=== PATIENT | male | born 2000 | race Caucasian/White ===

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

== ENCOUNTER 2022-09-24 15:02 | Emergency (ER) | payer MEDICAID, SELFPAY ==
[2022-09-24 15:20] VITALS: BP 132/92; PULSE 78; RESP 15; TEMP 36.7; O2SAT 99; BMI 20.2
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
[2022-09-24 19:05] LABS: Basophils # 0.1 10^3/uL (0.0-0.1); Basophils % 0.5 %; Eosinophils # 0.2 10^3/uL (0.0-0.8); Eosinophils % 1.7 %; Hematocrit 47.1 % (42.0-52.0); Hemoglobin 15.6 g/dL (11.7-16.6); Lymphocytes # 2.8 10^3/uL (1.5-6.5); Lymphocytes % 25.7 %; Mean Corpuscular HGB Conc 33.1 g/dL (30.0-36.0); Mean Corpuscular Hemoglobin 31.7 pg (28.0-34.0); Mean Corpuscular Volume 95.7 fl (80-94); Mean Platelet Volume 9.2 fL (7.4-10.4); Monocytes # 0.8 10^3/uL (0.2-0.9); Monocytes % 7.6 %; Neutrophils # 6.89 10^3/uL (1.8-8.0); Neutrophils % 64.2 %; Nucleated Red Blood Cells % 0 %; Platelet Count 287 10^3/cmm (130-400); Red Blood Count 4.92 10^6/uL (4.1-5.3); Red Cell Distribution Width 12.2 % (12.1-15.1); White Blood Count 10.7 10^3/uL (4.5-13.0)
[2022-09-24 19:11] LABS: Add Urine Microscopic? NO; Charge for UA Resulting for Rev
[2022-09-24 19:16] LABS: Bilirubin Urine Neg (Negative); Blood Urine Neg (Negative); Glucose Urine UA Norm (Normal); Ketones Urine Negative (Negative); Leukocyte Esterase Urine Negative (Negative); Nitrate Urine Negative (Negative); Protein Urine Neg (Negative); Specific Gravity, Urine 1.015 (1.005-1.030); Urine Appearance Clear (CLEAR); Urine Color Yellow (Yellow); Urobilinogen Urine 4 mg/dL (Negative); pH Urine 7 (5-7)
[2022-09-24 19:24] LABS: Anion Gap 12.7 (5-19); Blood Urea Nitrogen 12 mg/dL (6-20); Calcium 9.7 mg/dL (8.5-10.5); Carbon Dioxide 28 mmol/L (22-29); Chloride 103 mmol/L (98-107); Glomerular Filtration Rate 95.3 mL/min (90-130); Glucose 87 mg/dL (65-115); Osmolality Calculated 289 mOsm/kg (285-295); Potassium 3.7 mmol/L (3.5-5.1); Sodium 140 mmol/L (136-145)
[2022-09-24 20:00] VITALS: BP 135/85; PULSE 81; RESP 18; O2SAT 97
--- NOTE | 2022-09-24 20:00 | CTR_ITS ---
PROCEDURE INFORMATION: Exam: CT Abdomen And Pelvis Without Contrast Exam date and time: 09/24/2022 9:13 PM Age: 22 years old Clinical indication: Pain; Other: Left flank; Additional info: Left renal colic TECHNIQUE: Imaging protocol: Computed tomography of the abdomen and pelvis without contrast. Radiation optimization: All CT scans at this facility use at least one of these dose optimization techniques: automated exposure control; mA and/or kV adjustment per patient size (includes targeted exams where dose is matched to clinical indication); or iterative reconstruction. COMPARISON: CR XR chest 1V portable [id number] 11/17/2021 5:41 AM RADIATION DOSE METRICS: Total DLP (mGy-cm): 356.03 FINDINGS: Liver: Normal. No mass. Gallbladder and bile ducts: Normal. No calcified stones. No ductal dilation. Pancreas: Normal. No ductal dilation. Spleen: Normal. No splenomegaly. Adrenal glands: Normal. No mass. Kidneys and ureters: Normal. No hydronephrosis. Negative for urolithiasis. Stomach and bowel: Unremarkable. No obstruction. No mucosal thickening. Appendix: No evidence of appendicitis. Intraperitoneal space: Unremarkable. No free air. No significant fluid collection. Vasculature: Unremarkable. No abdominal aortic aneurysm. Lymph nodes: Unremarkable. No enlarged lymph nodes. Urinary bladder: Unremarkable as visualized. Reproductive: Unremarkable as visualized. Bones/joints: Unremarkable. No acute fracture. Soft tissues: Unremarkable. CT/CT abdomen pelvis con [id number] IMPRESSION: No acute findings.
[2022-09-24] MEDS: ketorolac 30 mg/mL INJ 15 MG IVP (21:00)
[2022-09-24 22:52] VITALS: BP 131/72; PULSE 74; RESP 18; O2SAT 98
== END 2022-09-24 22:45 | disposition home or self-care (01) ==
PROVIDERS: Nurse Practitioner Family; Emergency Provider Emergency Medicine; PCP Nurse Practitioner
DX: M54.50 Low back pain, unspecified (principal); F17.210 Nicotine dependence, cigarettes, uncomplicated
CPT/HCPCS: 74176; 80048; 81000; 81003; 85025; 87086; 96374; 99284; J1885

== ENCOUNTER → 2023-05-29 11:07 | Outpatient (BNVA) | payer SELFPAY | PROVIDERS: PCP Nurse Practitioner; Visit Provider Nurse Practitioner Family | DX: R10.10 Upper abdominal pain, unspecified (principal); R11.2 Nausea with vomiting, unspecified | CPT/HCPCS: 80053; 85025 ==

== ENCOUNTER 2025-07-02 19:30 | Emergency (ER) | payer BC, SELFPAY ==
[2025-07-02 19:36] VITALS: BP 155/78; PULSE 72; RESP 16; TEMP 36.9; O2SAT 99; BMI 20.9
--- NOTE | 2025-07-02 19:42 | XRR_ITS ---
PROCEDURE INFORMATION: Exam: XR Left Forearm Exam date and time: 07/02/2025 7:51 PM Age: 24 years old Clinical indication: Pain; Lower or forearm; Left; Additional info: Pain after pulling logs TECHNIQUE: Imaging protocol: Radiologic exam of the left forearm. 755 image(s) are submitted. Views: 2 views. COMPARISON: No relevant prior studies available. FINDINGS: Bones/joints: Normal. Soft tissues: Normal. XR/XR forearm LT 2V [id number] IMPRESSION: No acute findings.
[2025-07-02 20:41] VITALS: BP 140/78; PULSE 73; O2SAT 98
--- NOTE | 2025-07-02 21:15 | ED_ITS ---
HPI - Extremity Problem General: Chief complaint: Extremity Injury, Upper Stated complaint: LT hand Pain/ Tingling Time Seen by Provider: 07/02/25 19:46 History of Present Illness: Patient is a 24-year-old gentleman that was lifting heavy equipment with a repetitive motion and injured his left hand, and has association of tingling. This is affecting fingers #4 and 5 on his left hand. This is running up his palmar surface, to his elbow with pain. Selected Entries 07/02/25 19:36 ED Triage Comment left arm pain from 4th and 5th digit running down that side of arm to el bow. pt reports knot to palm of l eft hand. painful to make a fist or use. Pain started yesterday while he was a work Lug lo ading which means quickly turning jillian ards over and pull ing them towards h im. Associated symptoms: Deny chest pain, fever(s) or rash Related Data Home Medications ?Medication ?Instructions ?Recorded ?Confirmed ciprofloxacin HCl 500 mg tablet 500 mg PO BID 09/28/24 09/28/24 Allergies Allergy/AdvReac Type Severity Reaction Status Date / Time No Known Allergies Allergy Verified 09/28/24 14:55 Review of Systems General: Reports: 10 or more systems reviewed and unremarkable except in HPI and below Const: Denies: fever(s) or chills Eyes: Denies: change in vision or blurry vision ENMT: Denies: throat pain or mouth pain Card: Denies: chest pain or palpitations Resp: Denies: dyspnea or productive cough GI: Denies: abdominal pain, nausea or vomiting : Denies: flank pain or difficulty urinating Musc: Reports: extremity pain, joint pain, limited range of motion and muscle cramps; Denies: neck pain, back pain or joint redness Skin/Breast: Denies: rash or pruritus Neuro: Denies: headache(s) or numbness in extremities Psych: Denies: anxiety or depression PFS ED PFSH: Medical History (Updated 07/02/25 @ 21:19 by GUY Villela) Wheezing on auscultation Closed right forearm fracture Left wrist fracture Nose fracture Family History Other Chronic kidney disease (CKD) Heart palpitations Social History Smoking and tobacco/nicotine status: current every day tobacco/nicotine user smokeless tobacco Second hand smoke exposure: No Physical Exam Const: COMMON NORMALS: no acute distress, average body habitus and patient bob ented x3 HENMT: COMMON NORMALS: normocephalic and atraumatic HEAD & SCALP: normocephalic and atraumatic Neck/C-Spine: COMMON NORMALS: full ROM, no lymphadenopathy, supple and no meningeal signs Lymph: LYMPHATIC: no lymphadenopathy noted Chest: COMMONS NORMALS: normal inspection of the chest Resp: COMMON NORMALS: normal respiratory effort, No retractions and clear to auscultation bilaterally AUSCULTATION: clear to auscultation bilaterally Cardio: COMMON NORMALS: regular rate and regular rhythm RATE: regular rate RHYTHM: regular rhythm GI: COMMON NORMALS: Normal to inspection, nondistended, normoactive bowel sounds present, Soft to palpation and non-tender PALPATION: Yes Soft to p alpation : COMMON NORMALS: Yes no CVA tenderness BLADDER/KIDNEY EXAM: Yes no CVA tenderness Back/Pelvis: COMMON NORMALS: no CVA tenderness Extremity: RIGHT UPPER EXTREMITY: Yes wrist Right wrist: Yes ROM (decreased with retraction of fingers 4, 5), Yes neurovascular exam (sensation intact) and Yes special tests Right wrist special tests: Maik's test: Positive, Tinel's test: Positive, Phalen's test: Positive and Denny's test: Negative and Yes hand & digits Right hand and digits: Yes inspection, Yes palpation (Small Dupuytren's contraction left palm) and Yes hand special tests Neuro: COMMON NORMALS: patient oriented x3 MENINGEAL SIGNS: Yes no meningeal signs Psych: COMMON NORMALS: mental status grossly normal, Normal thought process present and cooperative THOUGHT PROCESS: Normal thought process present Skin: COMMON NORMALS: no rashes or lesions noted, no wounds and turgor normal GENERAL SKIN EXAM: no rashes or lesions noted and turgor normal Course Vital Signs: Vital signs: Vital Signs Temperature 98.4 F 07/02/25 19:36 Pulse Rate 73 07/02/25 21:34 Respiratory Rate 16 07/02/25 19:36 Blood Pressure 140/78 07/02/25 21:34 Pulse Oximetry 98 07/02/25 21:34 Oxygen Delivery Me thod Room Air 07/02/25 20:41 MDM - Extremity (Nontraumatic) Medical Decision Making Patient is a quite pleasant 24-year-old male presents to ED with his , with pain in fingers 4 and 5 with small contracture after movement injury at work. Place him in a carpal tunnel splint, and have him follow-up with orthopedist as well as light duty. Patient states understanding, and will utilize ice, Tylenol, ibuprofen for pain. Medical Records I reviewed the patient's medical records. Lab Data I reviewed the patient's lab results. Radiology Impressions Forearm X-Ray 07/02/25 19:42 IMPRESSION: No acute findings. All radiology interpretation(s) finalized by discharge Discharge Plan Discharge Patient Disposition: Home Clinical Impression: Median nerve compression Condition: Stable Prescriptions: No Action ciprofloxacin HCl 500 mg tablet 500 mg PO BID Discharge Orders: Discharge ED (Routine); Ordered 07/02/25 Ordered By: Carey Meneses Referrals: Sona Toscano FNP-BC [Primary Care Provider, Pediatrics] Terrance Light DO [Physician, Orthopedics] - 4-7 days Discharge Diet: Usual diet Discharge Activity: Limit activity as instructed Patient Instructions: Carpal Tunnel Syndrome (DC), Patient Portal & Dick Instructions Activity Restrictions/Additional Instructions: Follow-up with orthopedist. Wear the brace at all times, except to shower Utilize ice, Tylenol, and ibuprofen Return to ED with worsening pain, fever greater than 100.4 Stand Alone Forms: Work/School Release Print Language: Marshallese Coding Level of Care Code ED Rn Immunology for Lalo Collins
[2025-07-02 21:34] VITALS: BP 140/78; PULSE 73; O2SAT 98
== END 2025-07-02 21:36 | disposition home or self-care (01) ==
PROVIDERS: Emergency Provider Physician Assistant; PCP Nurse Practitioner
DX: G56.12 Other lesions of median nerve, left upper limb (principal); F17.290 Nicotine dependence, other tobacco product, uncomplicated
CPT/HCPCS: 29125; 73090; 99283